=== PATIENT | female | born 1995 | race Caucasian/White ===

== ENCOUNTER 2017-03-23 07:55 | Emergency (ER) | payer BC ==
[2017-03-23 08:36] LABS: BILIRUBIN,URINE NEGATIVE (NEGATIVE); PH,URINE 6.5 PH (5.0-7.5)
[2017-03-23 08:38] LABS: HCG UR QUAL NEGATIVE; UA CHARGE (STRIP ONLY) YES; UR CULTURE IF IND NOT INDICATED
--- NOTE | 2017-03-23 08:42 | ED Physician Documentation ---
History of Present Illness - Stated complaint Stated Complaint: KIDNEY PX - Chief complaint Chief Complaint: Abd Pain - Additonal information Additional information: hx from pt 21 f no prior surgey hx kidney stones R flank pain onset 6 AM no radiation now better in pain with breathing but no dyspnea and no CP no fever chills + NV Review of Systems Constitutional: denies: Fever, Chills Cardiac: denies: Chest pain / pressure Respiratory: denies: Dyspnea GI: reports: Nausea, Vomiting. denies: Abdominal Pain, Diarrhea : denies: Dysuria, Hematuria Musculoskeletal: reports: Back pain Immunocompromised: denies: Immunocompromised PD PAST MEDICAL HISTORY - Past Surgical History Past Surgical History: No - Present Medications Home Medications: Ambulatory Orders Medication Instructions Recorded Confirmed No Known Home Medications [No 08/13/16 03/23/17 Known Home Medications] - Allergies Allergies/Adverse Reactions: Allergies Allergy/AdvReac Type Severity Reaction Status Date / Time ibuprofen Allergy Rash Verified 03/23/17 08:00 [From DayQuil Sinus Pressure/Pain] pseudoephedrine HCl * Allergy Rash Verified 03/23/17 08:00 [From DayQuil Sinus Pressure/Pain] - Social History Does the pt smoke?: No Smoking Status: Never smoker Does the pt drink ETOH?: No Does the pt have substance abuse?: No - Immunizations Immunizations are current?: Yes PD ED PE NORMAL - Vitals Vital signs reviewed: Yes - General General: Alert and oriented X 3 - HEENT HEENT: PERRL - Neck Neck: Supple, no meningeal sign - Cardiac Cardiac: RRR - Respiratory Respiratory: No respiratory distress, Clear bilaterally - Abdomen Abdomen: Soft, Non tender, Other (neg zarate, no RLQ TTP) - Back Back: No CVA TTP - Derm Derm: Normal color - Neuro Neuro: Alert and oriented X 3 Results - Vitals Vitals: Vital Signs - 24 hr 03/23/17 07:59 Temperature 36.7 C Heart Rate 79 Respiratory 17 Rate Blood Pressure 121/85 H O2 Saturation 99 Oxygen O2 Source Room air - Labs Labs: Laboratory Tests 03/23/17 08:11 Urine Color YELLOW Urine Clarity CLEAR Urine pH 6.5 Ur Specific [place] 1.015 Urine Protein NEGATIVE Urine Glucose (UA) NEGATIVE Urine Ketones NEGATIVE Urine Occult Blood TRACE-INTA Urine Nitrite NEGATIVE Urine Bilirubin NEGATIVE Urine Urobilinogen 0.2 (NORMAL) Ur Leukocyte Esterase NEGATIVE Ur Microscopic Review NOT INDICATED Urine Culture Comments NOT INDICATED Urine HCG, Qual NEGATIVE PD MEDICAL DECISION MAKING - ED course ED course: only trace blood on UA considered sono to martha russell and GB but pt feeling better now - no pain, prefers just to go home Departure - Departure Disposition: 01 Home, Self Care Clinical Impression: Right flank pain Condition: Good Instructions: ED Flank Pain Uncertain Cause Comments: The urine test looked good - no significant blood to suggest kidney stone and no infection Since you are feeling better, you have asked to go home for now Certainly if the pain returns or you feel worse, please come back - we are always open And please follow up with your PMD to recheck your blood pressure - it was slightly elevated today Forms: Activity restrictions
[2017-03-23 09:33] VITALS: BP 117/54
== END 2017-03-23 09:33 | disposition home or self-care (01) ==
LOC: ED 07:55
DX: R10.30 Lower abdominal pain, unspecified (principal); M54.5 Low back pain; R11.2 Nausea with vomiting, unspecified
CPT/HCPCS: 81001; 81003; 81025; 87086; 99283